=== PATIENT | female | born 1980 | race Caucasian/White ===

== ENCOUNTER 2016-08-13 19:49 | Emergency (ER) | payer SELFPAY ==
[2016-08-13 20:06] VITALS: BP 179/117
[2016-08-13] MEDS ORDERED: Ketorolac 60 MG/2 ML SDV IM ONE (20:45)
[2016-08-13] MEDS ORDERED: Lidocaine 4% Top Soln 50 ML Bottle MUCMEM ONE (20:46)
[2016-08-13] MEDS ORDERED: Acetaminophen/HYDROcodone 325-5 MG Tab PO ONE (20:48)
--- NOTE | 2016-08-13 20:48 | EDM.PDOC ---
[id number] Time Seen by Provider: 08/13/16 20:46 Source of Information: Reports: Patient History Limitations: Reports: No Limitations - History of Present Illness INITIAL COMMENTS - FREE TEXT/NARRATIVE: Pt arrived with pain in th rt upper molar area. She has very carrious teeth. She is working now to try to be able to aford to get them extracted. 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: Psychiatric History: Reports: ADHD - Infectious Disease History Infectious Disease History: Reports: Chicken Pox, Shingles - Past Surgical History Female Surgical History: Reports: Tubal Ligation Social & Family History - Tobacco Use Smoking Status *Q: Light Tobacco Smoker Years of Tobacco use: 20 Packs/Tins Daily: 0.2 - Caffeine Use Caffeine Use: Reports: Coffee, Soda - Recreational Drug Use Recreational Drug Use: No ED ROS ENT - Review of Systems Review Of Systems: See Below Constitutional: Reports: No Symptoms HEENT: Reports: Dental Pain Respiratory: Reports: No Symptoms Cardiovascular: Reports: No Symptoms Endocrine: Reports: No Symptoms GI/Abdominal: Reports: No Symptoms : Reports: No Symptoms Musculoskeletal: Reports: No Symptoms Skin: Reports: No Symptoms Neurological: Reports: No Symptoms ED EXAM, ENT - Physical Exam Exam: See Below Text/Narrative:: pt has dental pain in the rt upper area. Exam Limited By: No Limitations General Appearance: Alert, Anxious Ears: Normal TMs Nose: Normal Inspection Mouth/Throat: Dental Pain Head: Atraumatic Neck: Normal Inspection Respiratory/Chest: No Respiratory Distress Cardiovascular: Regular Rate, Rhythm Course - Vital Signs Last Recorded V/S: Last Vital Signs Temp 36.8 C 08/13/16 20:14 Pulse 92 08/13/16 20:14 Resp 15 08/13/16 20:14 BP 179/117 H 08/13/16 20:14 Pulse Ox 99 08/13/16 20:14 - Orders/Labs/Meds Meds: Medications Discontinued Medications Generic Name Dose Route Start Last Admin Trade Name Freq PRN Reason Stop Dose Admin Hydrocodone Bitart/Acetaminophen 1 tab 08/13/16 20:48 08/13/16 20:57 [place] 325-5 Mg PO 08/13/16 20:49 1 tab ONETIME ONE Administration Amoxicillin 500 mg 08/13/16 20:49 08/13/16 20:57 Amoxil PO 08/13/16 20:50 500 mg ONETIME ONE Administration Ketorolac Tromethamine 60 mg 08/13/16 20:45 08/13/16 20:56 Toradol IM 08/13/16 20:46 60 mg ONETIME ONE Administration Lidocaine HCl 1 ml 08/13/16 20:46 08/13/16 20:55 Xylocaine 4% Top Soln MUCMEM 08/13/16 20:47 1 applic ONETIME ONE Administration - Re-Assessments/Exams Free Text/Narrative Re-Assessment/Exam: 08/13/16 21:27 pt was given torodol 60mg im and norco 5/325 po. She was given amoxicillin 500mg po. She had a pack with 4% lidocaine to apply to the area. Departure - Departure Time of Disposition: 20:46 Disposition: Home, Self-Care 01 Condition: Fair Clinical Impression: Infected tooth - Discharge Information Instructions: Dental Abscess, [id number] Referrals: PCP,None [Primary Care Provider] - Forms: ED Department Discharge Care Plan Goals: amoxicillin 500mg tid, norco 5/325 q6h prn for pain. dental referal in 10 days.
[2016-08-13] MEDS ORDERED: Amoxicillin 500 MG Cap PO ONE (20:49)
== END 2016-08-13 21:05 | disposition home or self-care (01) ==
LOC: JP.ED 19:49
DX: K04.7 Periapical abscess without sinus (principal); F17.210 Nicotine dependence, cigarettes, uncomplicated; F90.9 Attention-deficit hyperactivity disorder, unspecified type; Z98.51 Tubal ligation status; Z88.5 Allergy status to narcotic agent
CPT/HCPCS: 96372; 99283; A9270; J1885